=== PATIENT | female | born 1985 | race Two or more races ===

== ENCOUNTER 2023-01-20 02:59 | Emergency (ER) | payer OTHER ==
--- NOTE | 2023-01-20 03:14 | ERPHSYRPT ---
- History of Present Illness Time Seen by Provider: 01/20/23 03:13 Source: patient, family Exam Limitations: no limitations Physician History: This is a morbidly obese 37-year-old female who noticed some back pain that was sudden in onset and of moderate intensity. However in the last 2 hours it suddenly was worse. There is evidence of hematuria on obtaining urine specimen but patient does states that she is currently on her menstrual period. Patient has no history of renal stones. She has never had this kind of pain before. She did not suffer any acute trauma or fall to her back. She has no chest pain. She denies shortness of breath. Patient is diabetic, has hypertension and depression issues. Timing/Duration: today Method of Injury: other (No trauma or fall) Quality: other (Right flank pain) Severity of Pain-Max: moderate Severity of Pain-Current: moderate Modifying Factors: Improves With: nothing Associated Symptoms: nausea, lower back pain (Right flank pain), No urinary incontinence, No loss of bowel control, No vomiting, No problems urinating Previous symptoms: no prior history Allergies/Adverse Reactions: No Known Drug Allergies Allergy (Unverified 01/20/23 03:15) Home Medications: Clonidine HCl 0.1 mg [Clonidine 0.1 mg Tablet] 0.1 mg PO HS 01/20/23 [History] Dextroamphetamine/Amphetamine [Adderall Xr 20 mg Capsule] 40 mg PO DAILY 01/20/23 [History] Fluoxetine HCl 20 mg [Prozac 20 MG] 20 mg PO DAILY 01/20/23 [History] Metformin HCl Xr 500 mg [Glucophage XR 500 MG] 1,000 mg PO DAILY 01/20/23 [History] Trazodone HCl 50 mg [Desyrel 50 mg] 100 mg PO HS PRN 01/20/23 [History] buPROPion HCl [Wellbutrin Sr] 100 mg PO DAILY 01/20/23 [History] lamoTRIgine [Lamictal Xr] 300 mg PO DAILY 01/20/23 [History] Travel Risk - International Travel Have you traveled outside of the country in past 3 weeks: No - Coronavirus Screening Are you exhibiting any of the following symptoms?: No Close contact with a COVID-19 positive Pt in past 14-21 Days: No - Review of Systems Constitutional: No Symptoms Eyes: No Symptoms Ears, Nose, & Throat: No Symptoms Respiratory: No Symptoms Cardiac: No Symptoms Abdominal/Gastrointestinal: Nausea, No Abdominal Pain, No Vomiting, No Diarrhea, No Constipation Genitourinary Symptoms: Flank Pain (Right) Musculoskeletal: Back Pain Skin: No Symptoms (Right flank pain) Neurological: No Symptoms Psychological: No Symptoms Endocrine: No Symptoms Hematologic/Lymphatic: No Symptoms - Past Medical History Pertinent Past Medical History: No - Past Surgical History Past Surgical History: No - Nursing Vital Signs Nursing Vital Signs: Initial Vital Signs Temperature 96.8 F 01/20/23 03:00 Pulse Rate 100 H 01/20/23 03:00 Respiratory Rate 18 01/20/23 03:00 Blood Pressure 102/70 01/20/23 03:00 O2 Sat by Pulse Oximetry 100 01/20/23 03:00 Pain Scale Pain Intensity [Right Lower 7 Back] Pain Intensity 3 - Physical Exam General Appearance: mild distress, alert, anxiety, obese Eye Exam: PERRL/EOMI, eyes nml inspection Ears, Nose, Throat Exam: normal ENT inspection, moist mucous membranes Neck Exam: normal inspection, non-tender, supple, full range of motion Respiratory Exam: normal breath sounds, lungs clear, airway intact, No chest tenderness, No respiratory distress Cardiovascular Exam: regular rate/rhythm, normal heart sounds, normal peripheral pulses Gastrointestinal Exam: soft, normal bowel sounds, No tenderness Pelvic Exam: not done Rectal Exam: not done Back Exam: normal inspection, normal range of motion, CVA tenderness (Right), No vertebral tenderness Extremity Exam: normal inspection, normal range of motion, pelvis stable Neurologic Exam: alert, oriented x 3, cooperative, 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, normal mood/affect, nml cerebellar function, nml station & gait, sensation nml Skin Exam: normal color, warm, dry Lymphatic Exam: No adenopathy SpO2 Interpretation: normal O2 Delivery: Room Air - Course Nursing assessment & vital signs reviewed: Yes Ordered Tests: Active Orders 24 hr Category Date Time Status IV Insertion STAT Care 01/20/23 03:37 Active ABDOMEN AND PELVIS W/0 CONTRAS [CT] Stat Exams 01/20/23 03:38 Taken AMYLASE Stat Lab 01/20/23 03:48 Completed CBC W DIFF Stat Lab 01/20/23 03:48 Completed CMP Stat Lab 01/20/23 03:48 Completed CULTURE,URINE Stat Lab 01/20/23 03:48 Received HCG QUALITATIVE, SERUM Stat Lab 01/20/23 03:48 Completed LIPASE Stat Lab 01/20/23 03:48 Completed UA W/RFX UR CULTURE Stat Lab 01/20/23 03:48 Completed Medication Summary Discontinued Medications Generic Name Dose Route Start Last Admin Trade Name Maxx PRN Reason Stop Dose Admin Sodium Chloride 1,000 mls @ 999 mls/hr 01/20/23 03:37 01/20/23 04:48 Sodium Chloride 0.9% 1000 Ml IV 01/20/23 04:37 Infused .Q1H1M STA Infusion Sodium Chloride Confirm 01/20/23 03:44 Sodium Chloride 0.9% 1000 Ml Administered 01/20/23 03:45 Dose 1,000 mls @ ud .ROUTE .STK-MED ONE Ceftriaxone Sodium/Dextrose 1 g in 50 mls @ 100 mls/hr 01/20/23 04:57 01/20/23 05:58 Rocephin 1 Gm-D5w 50 Ml Bag IV 01/20/23 05:26 Infused STAT STA Infusion Ceftriaxone Sodium/Dextrose Confirm 01/20/23 05:01 Rocephin 1 Gm-D5w 50 Ml Bag Administered 01/20/23 05:02 Dose 1 g in 50 mls @ ud IV .STK-MED ONE Ketorolac Tromethamine 30 mg 01/20/23 03:37 01/20/23 03:46 Ketorolac Tromethamine 30 Mg/Ml Inj IV 01/20/23 03:38 30 mg STAT ONE Administration Ketorolac Tromethamine Confirm 01/20/23 03:44 Ketorolac Tromethamine 30 Mg/Ml Inj Administered 01/20/23 03:45 Dose 30 mg .ROUTE .STK-MED ONE Ondansetron HCl 4 mg 01/20/23 03:37 01/20/23 03:46 Ondansetron Hcl 4 Mg/2 Ml Vial IV 01/20/23 03:38 4 mg STAT ONE Administration Ondansetron HCl Confirm 01/20/23 03:44 Ondansetron Hcl 4 Mg/2 Ml Vial Administered 01/20/23 03:45 Dose 4 mg .ROUTE .STK-MED ONE Lab/Rad Data: Laboratory Result Diagrams 01/20/23 03:48 01/20/23 03:48 Laboratory Results 01/20/23 01/20/23 01/20/23 Range/Units 03:48 03:48 03:48 WBC (4.0-10.5) x10^3/uL RBC (4.1-5.4) x10^6/uL Hgb (12.0-16.0) g/dL Hct (35-47) % MCV (78-100) fL MCH (26-32) pg MCHC (32-36) g/dL RDW (11.5-14.0) % Plt Count (150-450) x10^3/uL MPV (7.5-11.0) fL Gran % (36.0-66.0) % Immature Gran % (Auto) (0.00-0.4) % Nucleat RBC Rel Count (0.00-0.1) % Eos # (Auto) (0-0.5) x10^3/uL Immature Gran # (Auto) (0.00-0.03) x10^3u/L Absolute Lymphs (auto) (1.0-4.6) x10^3/uL Absolute Monos (auto) (0.0-1.3) x10^3/uL Absolute Nucleated RBC (0.00-0.01) x10^3u/L Lymphocytes % (24.0-44.0) % Monocytes % (0.0-12.0) % Eosinophils % (0.00-5.0) % Basophils % (0.0-0.4) % Absolute Granulocytes (1.4-6.9) x10^3/uL Basophils # (0-0.4) x10^3/uL Sodium 138 (137-145) mmol/L Potassium 3.8 (3.5-5.1) mmol/L Chloride 98 (98-107) mmol/L Carbon Dioxide 31 H (22-30) mmol/L Anion Gap 11.9 (5-15) MEQ/L BUN 18 H (7-17) mg/dL Creatinine 0.85 (0.52-1.04) mg/dL Estimated GFR > 60.0 ML/MIN Glucose 107 H (74-106) mg/dL Calcium 8.9 (8.4-10.2) mg/dL Total Bilirubin 0.30 (0.2-1.3) mg/dL AST 36 (14-36) U/L ALT 22 (0-35) U/L Alkaline Phosphatase 109 (38-126) U/L Serum Total Protein 7.9 (6.3-8.2) g/dL Albumin 4.0 (3.5-5.0) g/dL Amylase 50 (30-110) U/L Lipase 45 (23-300) U/L Serum HCG, Qual NEGATIVE (NEGATIVE) Urine Color Red A (Yellow) Urine Appearance Turbid A (Clear) Urine pH 5.0 (4.6-8.0) Ur Specific [place] 1.025 (1.005-1.030) Urine Protein 100 A (Negative) Urine Glucose (UA) Negative (Negative) mg/dL Urine Ketones Negative (Negative) Urine Blood Large A (Negative) Urine Nitrite Positive A (Negative) Urine Bilirubin Small A (Negative) Urine Urobilinogen 0.2 (0.2) mg/dL Ur Leukocyte Esterase Moderate A (Negative) Urine Microscopic RBC 51-100 A (0-5) /HPF Urine Microscopic WBC >100 A (0-5) /HPF Ur Epithelial Cells Moderate A (None Seen) /HPF Urine Bacteria Few A (None Seen) /HPF Urine Culture Reflexed YES (NO) 01/20/23 Range/Units 03:48 WBC 14.7 H (4.0-10.5) x10^3/uL RBC 4.53 (4.1-5.4) x10^6/uL Hgb 11.3 L (12.0-16.0) g/dL Hct 36.5 (35-47) % MCV 80.6 (78-100) fL MCH 24.9 L (26-32) pg MCHC 31.0 L (32-36) g/dL RDW 15.9 H (11.5-14.0) % Plt Count 400 (150-450) x10^3/uL MPV 9.0 (7.5-11.0) fL Gran % 65.9 (36.0-66.0) % Immature Gran % (Auto) 0.4 (0.00-0.4) % Nucleat RBC Rel Count 0.0 (0.00-0.1) % Eos # (Auto) 0.21 (0-0.5) x10^3/uL Immature Gran # (Auto) 0.06 H (0.00-0.03) x10^3u/L Absolute Lymphs (auto) 3.71 (1.0-4.6) x10^3/uL Absolute Monos (auto) 0.98 (0.0-1.3) x10^3/uL Absolute Nucleated RBC 0.00 (0.00-0.01) x10^3u/L Lymphocytes % 25.3 (24.0-44.0) % Monocytes % 6.7 (0.0-12.0) % Eosinophils % 1.4 (0.00-5.0) % Basophils % 0.3 (0.0-0.4) % Absolute Granulocytes 9.67 H (1.4-6.9) x10^3/uL Basophils # 0.05 (0-0.4) x10^3/uL Sodium (137-145) mmol/L Potassium (3.5-5.1) mmol/L Chloride (98-107) mmol/L Carbon Dioxide (22-30) mmol/L Anion Gap (5-15) MEQ/L BUN (7-17) mg/dL Creatinine (0.52-1.04) mg/dL Estimated GFR ML/MIN Glucose (74-106) mg/dL Calcium (8.4-10.2) mg/dL Total Bilirubin (0.2-1.3) mg/dL AST (14-36) U/L ALT (0-35) U/L Alkaline Phosphatase (38-126) U/L Serum Total Protein (6.3-8.2) g/dL Albumin (3.5-5.0) g/dL Amylase (30-110) U/L Lipase (23-300) U/L Serum HCG, Qual (NEGATIVE) Urine Color (Yellow) Urine Appearance (Clear) Urine pH (4.6-8.0) Ur Specific [place] (1.005-1.030) Urine Protein (Negative) Urine Glucose (UA) (Negative) mg/dL Urine Ketones (Negative) Urine Blood (Negative) Urine Nitrite (Negative) Urine Bilirubin (Negative) Urine Urobilinogen (0.2) mg/dL Ur Leukocyte Esterase (Negative) Urine Microscopic RBC (0-5) /HPF Urine Microscopic WBC (0-5) /HPF Ur Epithelial Cells (None Seen) /HPF Urine Bacteria (None Seen) /HPF Urine Culture Reflexed (NO) - Progress Progress: improved Progress Note: 01/20/23 05:22 Patient reexamined. Patient states her pain is nearly completely gone. Patient's medical issues 1 of moderate complexity. Level complexity and the work-up performed is based on the review of the patient's past medical history, review of the patient's medication list, review the information drug allergy list, history of present illness and physical finds on examination. The work-up in this patient includes placement of intravenous line, obtaining a urinalysis, CBC, CMP, amylase and lipase levels, CT scan of the abdomen pelvis, infusion of 4 mg intravenous Zofran, infusion of 30 mg intravenous Toradol and infusion of 1 L of normal saline intravenously. I reviewed the work-up results that have completed. Patient has at least a significant urinary tract infection. We are awaiting the results of the CAT scan. The radiologist is interpreting that now and I will follow-up on the impression. Patient will have an outpatient prescription remotely sent to her pharmacy for Cipro, 500 mg orally 2 times a day for 7 days. 01/20/23 06:10 The radiologist group called and the radiologist interpretation. There is no evidence of any acute intra-abdominal or intrapelvic abnormalities. There is no evidence of ureterolithiasis. There is question of some mild stranding, inflammation appreciated greatest in the area of the head of the pancreas. However, clinical correlation was advised. Patient has no evidence of elevated amylase or lipase levels. She has significant urinary tract infection. Counseled pt/family regarding: lab results, diagnosis, need for follow-up, rad results Medical Desision Making - Independent Historian Additional History obtained from: Spouse - Diagnostic Testing Diagnostic test were ordered, analyzed, and reviewed by me: Yes Radiological Interpretation: Reviewed by me, Teleradiologist Report - Risk of complications The pt has a mod risk of morbidity or mortality based on: Need for prescription drug management - Departure Departure Disposition: Home Clinical Impression: UTI (urinary tract infection) Condition: Stable Critical Care Time: No Referrals: CHI MUÑOZ CLOTHES SEPARATOR [Primary Care Provider] - Follow up/PCP as directed Additional Instructions: Drink plenty of fluids. Use ibuprofen 600 mg orally 3 times a day with food for the next 5 days. Follow-up with your primary care provider for further evaluation and management. Prescriptions: Ciprofloxacin [Cipro 500 MG] 500 mg PO BID #14 tablet
[2023-01-20] MEDS ORDERED: Zofran 4 MG/2 ML VIAL IV ONE (03:37)
[2023-01-20] MEDS ORDERED: Sodium Chloride 0.9% 1000 ML 1,000 ML IV STA (03:37)
[2023-01-20] MEDS ORDERED: TORAdol 30 mg Injection IV ONE (03:37)
[2023-01-20 03:43] VITALS: RESP 18; TEMP 96.8
[2023-01-20] MEDS ORDERED: Sodium Chloride 0.9% 1000 ML 1,000 ML ONE (03:44)
[2023-01-20] MEDS ORDERED: TORAdol 30 mg Injection ONE (03:44)
[2023-01-20] MEDS ORDERED: Zofran 4 MG/2 ML VIAL ONE (03:44)
[2023-01-20 03:54] LABS: Absolute Neutrophil Ct (ANC) 9.67 x10^3/uL (1.4-6.9); BASOPHIL % 0.3 % (0.0-0.4); Basophil (Absolute #) 0.05 x10^3/uL (0-0.4); Eosinophil % 1.4 % (0.00-5.0); Eosinophil (Absolute #) 0.21 x10^3/uL (0-0.5); Hematocrit 36.5 % (35-47); Hemoglobin 11.3 g/dL (12.0-16.0); IMMATURE GRAN # 0.06 x10^3u/L (0.00-0.03); IMMATURE GRAN % 0.4 % (0.00-0.4); Lymphocyte (Absolute #) 3.71 x10^3/uL (1.0-4.6); Lymphocytes % 25.3 % (24.0-44.0); Mean Cell Volume 80.6 fL (78-100); Mean Corpuscular Hemoglobin 24.9 pg (26-32); Monocyte (Absolute #) 0.98 x10^3/uL (0.0-1.3); Monocytes % 6.7 % (0.0-12.0); Neutrophil % 65.9 % (36.0-66.0); Platelet Count 400 x10^3/uL (150-450); Red Blood Count 4.53 x10^6/uL (4.1-5.4); Red Cell Distribution Width 15.9 % (11.5-14.0); White Blood Count 14.7 x10^3/uL (4.0-10.5)
[2023-01-20 04:02] LABS: HCG SERUM TEST NEGATIVE (NEGATIVE)
[2023-01-20 04:03] LABS: ALKALINE PHOSPHATASE 109 U/L (38-126); AMYLASE 50 U/L (30-110); ANION GAP 11.9 MEQ/L (5-15); BLOOD UREA NITROGEN 18 mg/dL (7-17); CHLORIDE 98 mmol/L (98-107); Calcium 8.9 mg/dL (8.4-10.2); Carbon Dioxide 31 mmol/L (22-30); Creatinine 1 0.85 mg/dL (0.52-1.04); EST GLOMERULAR FILTRATION RATE > 60.0 ML/MIN; Glucose 107 mg/dL (74-106); LIPASE 45 U/L (23-300); Potassium 3.8 mmol/L (3.5-5.1); SGOT/AST 36 U/L (14-36); SGPT/ALT 22 U/L (0-35); SODIUM 138 mmol/L (137-145); Total Protein 7.9 g/dL (6.3-8.2)
[2023-01-20 04:50] LABS: Appearance Turbid (Clear); Bilirubin Small (Negative); Blood Large (Negative); Glucose, Urine Negative (Negative); Ketones Negative (Negative); Leukocyte Esterase Moderate (Negative); Nitrite Positive (Negative); Protein,Urine Dip 100 (Negative); Specific Gravity 1.025 (1.005-1.030); Urobilinogen 0.2 mg/dL (0.2)
[2023-01-20 04:54] LABS: RBC 51-100 /HPF (0-5); WBC >100 /HPF (0-5)
[2023-01-20 04:55] LABS: ADD URINE CULTURE? YES (NO); Bacteria Few /HPF (None Seen); Epithelial Cells Moderate /HPF (None Seen)
[2023-01-20] MEDS ORDERED: ROCEPHIN 1 Gm-D5w 50 ml Bag** 1 G/50 ML IVPB IV STA (04:57)
[2023-01-20] MEDS ORDERED: ROCEPHIN 1 Gm-D5w 50 ml Bag** 1 G/50 ML IVPB IV ONE (05:01)
--- NOTE | 2023-01-20 06:16 | XRAY ---
CLINICAL HISTORY:Right flank pain COMPARISON:None. TECHNIQUES:Axial sections of CT abdomen and pelvis were obtained without administration of intravenous contrast. Reconstructed coronal and sagittal images were also acquired. FINDINGS: Both kidneys are normal in size and shape. No urolithiasis or obstructive uropathy. Pancreatic parenchyma appears slightly hypodense, most pronounced in the region of the head. Clinical and lab correlation is advised to rule out early/developing acute pancreatitis. No significant peripancreatic inflammatory changes or peripancreatic collection is identified. The urinary bladder is suboptimally distended. No definite intravesical abnormality. Uterus and bilateral adnexa appear unremarkable. The appendix is separately visualized. No definite evidence of acute appendicitis. Few phleboliths within the pelvis. The liver is normal in attenuation and size. No discrete focal hepatic lesion is seen. No definite evidence of intrahepatic biliary dilatation. Gallbladder is partially contracted. The spleen and bilateral adrenal glands appear unremarkable. The stomach is normally distended. Visualized large and small bowel loops appear grossly unremarkable. The heart is normal in size. No pericardial effusion. No significant abnormality in the visualized lung bases. No acute bony abnormality. IMPRESSION: No urolithiasis or obstructive uropathy. Pancreatic parenchyma appears slightly hypodense, most pronounced in the region of the head. Clinical and lab correlation is advised to rule out early/developing acute pancreatitis. Electronically Signed by: Althea Elliott MD. (01/20/2023 04:01:31 DIRECTOR OF CUSTOMER ACQUISITION)
[2023-01-20 06:39] VITALS: BP 115/74; PULSE 82; O2SAT 97
== END 2023-01-20 06:39 | disposition home or self-care (01) ==
LOC: ED 02:59
DX: N39.0 Urinary tract infection, site not specified (principal); M54.50 Low back pain, unspecified; E11.9 Type 2 diabetes mellitus without complications; I10 Essential (primary) hypertension; Z79.84 Long term (current) use of oral hypoglycemic drugs; Z79.899 Other long term (current) drug therapy
CPT/HCPCS: 36000; 36415; 74176; 80053; 81001; 82150; 83690; 84703; 85025; 87086; 96360; 96365; 96374; 96375; 99284; J0696; J1885; J2405

== ENCOUNTER 2024-07-04 19:39 | Emergency (ER) | payer OTHER ==
[2024-07-04 19:52] VITALS: RESP 18; O2SAT 100
--- NOTE | 2024-07-04 19:59 | ERPHSYRPT ---
- History of Present Illness Time Seen by Provider: 07/04/24 19:59 Source: patient Exam Limitations: no limitations Patient Subjective Stated Complaint: pt reports a ring being stuck on her left ring finger, states she tried a bunch of different methods at home to attempt removal but was unsuccessful, pt has pain to her finger at this time. Triage Nursing Assessment: pt is aox3, pupils perrl, afebrile, resps easy and non labored, cap refill < 3 seconds, pt skin pink warm dry. pt with moderate swelling to her left ring finger, black metal ring in place at this time. Physician History: Ring stuck on left ring finger, tried multiple methods to remove at home. She would like definitve removal of the ring. Occurred: yesterday Method of Injury: unknown Quality: constant Severity of Pain-Max: mild Severity of Pain-Current: mild Extremities Pain Location: 4th finger: left Modifying Factors: Improves With: nothing Associated Symptoms: none Allergies/Adverse Reactions: No Known Drug Allergies Allergy (Verified 07/04/24 19:52) Home Medications: Clonidine HCl 0.1 mg [Clonidine 0.1 mg Tablet] 0.1 mg PO HS 01/20/23 [History] Dextroamphetamine/Amphetamine [Adderall Xr 20 mg Capsule] 40 mg PO DAILY 01/20/23 [History] Fluoxetine HCl 20 mg [Prozac 20 MG] 20 mg PO DAILY 01/20/23 [History] Metformin HCl Xr 500 mg [Glucophage XR 500 MG] 1,000 mg PO DAILY 01/20/23 [History] Trazodone HCl 50 mg [Desyrel 50 mg] 100 mg PO HS PRN 01/20/23 [History] buPROPion HCl [Wellbutrin Sr] 100 mg PO DAILY 01/20/23 [History] lamoTRIgine [Lamictal Xr] 300 mg PO DAILY 01/20/23 [History] Hx Tetanus, Diphtheria Vaccination/Date Given: Yes Hx Influenza Vaccination/Date Given: Yes Hx Pneumococcal Vaccination/Date Given: No Immunizations Up to Date: Yes Travel Risk - International Travel Have you traveled outside of the country in past 3 weeks: No - Emerging Infectious Disease Are you exhibiting symptoms associated with any current EIDs: No - Review of Systems All Other Systems: Reviewed and Negative - Past Medical History Pertinent Past Medical History: Yes Neurological History: Migraines ENT History: No Pertinent History Cardiac History: No Pertinent History Respiratory History: No Pertinent History Endocrine Medical History: No Pertinent History Musculoskeletal History: No Pertinent History GI Medical History: No Pertinent History History: No Pertinent History Psycho-Social History: Anxiety, Depression, Other Female Reproductive Disorders: Other Other Medical History: PCOS, PTSD, Anemia - Past Surgical History Past Surgical History: No Other Surgical History: 4 wisdom teeth removal - Female History Hx Last Menstrual Period: 06/03/25 Hx Now: No - Social History Smoking Status: Never smoker Exposure to second hand smoke: No Drug Use: none Patient Lives Alone: No - Social Determinants of Health Will the patient participate in the screening: Declined to provide - Nursing Vital Signs Nursing Vital Signs: Initial Vital Signs Pulse Rate 96 H 07/04/24 19:43 Respiratory Rate 18 07/04/24 19:43 Blood Pressure 160/90 07/04/24 19:43 O2 Sat by Pulse Oximetry 100 07/04/24 19:43 Pain Scale Pain Intensity 4 - Physical Exam Hand Exam: swelling (ring stuck at base of phalanx, cap refill <2sec) SpO2: 100 Procedures - Additional Procedures Progress: Ring removal Left 4th digit protective sleeve placed under ring and ring saw was used to release the ring. The ring was successfully released and removed from digit. Patient had a small blister under the ring noted after removal. - Course Nursing assessment & vital signs reviewed: Yes - Progress Progress: improved Progress Note: 07/04/24 20:47 Ring removed, no neurovascular deficits. Counseled pt/family regarding: diagnosis Medical Desision Making - Diagnostic Testing Diagnostic test were ordered, analyzed, and reviewed by me: No - Risk of complications Low Risk: Low risk of morbidity from additional dx testing or treatment - Departure Departure Disposition: Home Clinical Impression: Ring or other jewelry causing external constriction, initial encounter Condition: Good Critical Care Time: No Referrals: RAYMON STODDARD NP [Primary Care Provider] - Follow up/PCP as directed Instructions: Dependent Edema (DC)
[2024-07-04 20:49] VITALS: BP 143/91; PULSE 100
== END 2024-07-04 20:53 | disposition home or self-care (01) ==
LOC: ED 19:39
DX: S60.445A External constriction of left ring finger, initial encounter (principal); W49.04XA Ring or other jewelry causing external constriction, initial encounter; Z79.84 Long term (current) use of oral hypoglycemic drugs; Z79.899 Other long term (current) drug therapy
CPT/HCPCS: 99282